=== PATIENT | male | born 2000 | race Caucasian/White ===

== ENCOUNTER 2021-10-09 23:00 | Emergency (ER) | payer SELFPAY ==
[2021-10-09 23:01] VITALS: BP 126/73; PULSE 135; RESP 18; TEMP 35.6; BMI 26.5
--- NOTE | 2021-10-09 23:11 | EDS_ITS ---
HPI History of Present Illness Chief Complaint: Wound Narrative Narrative: Patient was barefoot stepped on a finishing nail. It went into his left heel. Small puncture. Small bit of blood initially. No continued bleeding. Unknown tetanus. No other injury. Nothing makes better or worse. PFSH PFSH Home Medications cephalexin 500 mg capsule 500 mg PO Q6 #20 caps 10/09/21 [Rx Last Taken Unknown] Allergy/AdvReac Type Severity Reaction Status Date / Time No Known Allergies Allergy Verified 10/09/21 23:04 [facility] ED Gastrointestinal Gastrointestinal: Denies nausea or vomiting Neurologic Neurologic: Denies paresthesias Hematologic/Lymphatic Hematologic/Lymphatic: Denies easy bleeding or easy bruising EXAM Physical Exam Const Vital Signs: 10/09/21 23:01 10/09/21 23:01 Temperature 96.0 F L 96.0 F L Temperature Source Temporal Temporal Pulse Rate 135 H 135 H Respiratory Rate 18 18 Blood Pressure 126/73 H 126/73 H Blood Pressure Mean 90 90 Positive well nourished and well developed General Appearance ED: well developed and NAD Extremity Extremity Narrative: Patient is a small just visible puncture at the anterior surface of his left heel. No swelling. No erythema. No bleeding. This just happened within the last half hour. Neuro Neuro Narrative: No sensory or motor changes Sensory Exam: No sensory level loss detected Skin Skin Narrative: See above. MDM MDM MDM Narrative Medical decision making narrative: Patient was barefooted. We will update his tetanus. I will put him on a short course of Keflex. Discharge Plan Triage Chief Complaint: Wound ED Provider: Tio Bourne Dx/Rx/DC Orders Clinical Impression: Puncture wound of left heel Instructions: ED Puncture Wound (Foot) Prescriptions: New cephalexin [cephalexin] 500 mg capsule 500 mg PO Q6 Qty: 20 0RF Primary Care Provider: Kwasi Arnett,Out of Referrals: Fast,Jes, DO [NON-STAFF] - 3-5 Days if not improving Kwasi Doctor,Out of [Primary Care Provider] - Disposition Disposition: Home, Self Care
[2021-10-09 23:14] VITALS: RESP 18
[2021-10-09] MEDS: Diphth,Pertuss(Acell),Tet Vac 0.5 ML Vial IM (23:49)
[2021-10-09] MEDS: Cephalexin 250 MG Capsule 500 MG PO (23:49)
== END 2021-10-09 23:58 | disposition home or self-care (01) ==
LOC: ED 23:52
PROVIDERS: Emergency Provider Emergency Medicine; Visit Provider Emergency Medicine
DX: S91.332A Puncture wound without foreign body, left foot, initial encounter (principal); W45.0XXA Nail entering through skin, initial encounter; Z23 Encounter for immunization
CPT/HCPCS: 90471; 90715; 99283